=== PATIENT | female | born 1985 ===

== ENCOUNTER 2017-10-25 12:43 | Emergency (ER) | payer SELFPAY ==
[2017-10-25 12:50] VITALS: BP 131/76; PULSE 106; RESP 20; TEMP 97.7; O2SAT 98
--- NOTE | 2017-10-25 14:19 | C.PDOC ---
History Of Present Illness 31 year old female is brought into the emergency department by EMS for complaints of left ear pain for the past week. Patient denies a decrease in hearing, fever, chest pain, shortness of breath, or abdominal pain. Patient reports she is currently eight months . Chief Complaint (Nursing): ENT Problem History Per: Patient History/Exam Limitations: None Onset/Duration Of Symptoms: Days (1 week) Quality (Ear): Other (pain) Past Medical History Reviewed: Historical Data, Nursing Documentation, Vital Signs Vital Signs: Last Vital Signs Temp 97.7 F 10/25/17 12:47 Pulse 106 H 10/25/17 12:47 Resp 20 10/25/17 12:47 BP 131/76 10/25/17 12:47 Pulse Ox 98 10/25/17 14:24 - Medical History PMH: No Chronic Diseases Surgical History: No Surg Hx Family History: States: No Known Family Hx - Social History Hx Alcohol Use: No Hx Substance Use: No - Immunization History Hx Tetanus Toxoid Vaccination: No Hx Influenza Vaccination: No Hx Pneumococcal Vaccination: No Review Of Systems Except As Marked, All Systems Reviewed And Found Negative. Constitutional: Negative for: Fever ENT: Positive for: Ear Pain Cardiovascular: Negative for: Chest Pain Respiratory: Negative for: SOB with Excertion Gastrointestinal: Negative for: Abdominal Pain Neurological: Negative for: Other (decreased hearing) Physical Exam - Physical Exam Ear(s): Left: TM Erythema, Bilateral: Other (no mastoid tenderness ) Cardiovascular: Rhythm Regular Respiratory: Normal Breath Sounds Gastrointestinal/Abdominal: Normal Exam, Bowel Sounds (good), Soft, No Tenderness, Other (fundus at xiphoid process) ED Course And Treatment O2 Sat by Pulse Oximetry: 98 (RA) Pulse Ox Interpretation: Normal Disposition - Disposition Referrals: [facility] Amanda Aleman, [Non-Staff] - Disposition: HOME/ ROUTINE Disposition Time: 13:00 Condition: GOOD Additional Instructions: Thank you for letting us take care of you today. The emergency medical care you received today was directed at your acute symptoms. If you were prescribed any medication, please fill it and take as directed. It may take several days for your symptoms to resolve. Return to the Emergency Department if your symptoms worsen, do not improve, or if you have any other problems. Please contact your doctor or call one of the physicians/clinics you have been referred to that are listed on the Patient Visit Information form that is included in your discharge packet. Bring any paperwork you were given at discharge with you along with any medications you are taking to your follow up visit. Our treatment cannot replace ongoing medical care by a primary care provider (PCP) outside of the emergency department. Thank you for allowing the [facility] team to be part of your care today. Follow up with your primary care doctor in 2-3 days for re-evaluation and further management. Balta por dejarnos atenderlo hoy. La atencin mdica de emergencia que recibi hoy estaba dirigida a lauryn sntomas agudos. Si le prescribieron algn medicamento, llnelo y tome segn las indicaciones. Lauryn sntomas pueden tardar varios rider en resolverse. Regrese al Departamento de Emergencia si lauryn s ntomas empeoran, no mejoran o si tiene algn otro problema. Comunquese con tabares mdico o llame a jay de los mdicos / clnicas a los que gilbert sido referido que figura en el formulario de Informacin de visita del paciente que se incluye en tabares paquete de beckie. Traiga todos los documentos que recibi al momento del beckie junto con los medicamentos que est tomando en tabares visita de seguimiento. Nuestro tratamiento no puede reemplazar la atencin mdica en curso por parte de un proveedor de atencin primaria (PCP) fuera del departamento de emergencias. Balta por permitir que el equipo de [facility] sea parte de tabares cuidado hoy. Shan un seguimiento con tabares mdico de atencin primaria en 2-3 rider para claire nueva evaluacin y administracin adicional. Prescriptions: Amoxicillin [Amoxil 500 mg Cap] 500 mg PO Q8 #21 cap Forms: Gen Discharge Inst [place], [employer] ([place]) Print Language: SERBIAN - Clinical Impression Clinical Impression: Otitis media - Scribe Statement The provider has reviewed the documentation as recorded by the Scribe (Glen Naik) Provider Attestation: All medical record entries made by the Nitin were at my direction and personally dictated by me. I have reviewed the chart and agree that the record accurately reflects my personal performance of the history, physical exam, medical decision making, and the department course for this patient. I have also personally directed, reviewed, and agree with the discharge instructions and disposition.
== END 2017-10-25 13:38 | disposition home or self-care (01) ==
LOC: C.ER 12:43
DX: H66.92 Otitis media, unspecified, left ear (principal)

== ENCOUNTER 2017-12-25 06:20 | Inpatient (IN) | payer MEDICAID ==
[2017-12-25 06:32] VITALS: BMI 37.0
--- NOTE | 2017-12-25 10:32 | OBHP ---
Datetime: 12/25/2017 10:17 Admit Comment, IP Provider: 32 y/o at 38.6 wks presents to L_D for scheduled repeat c sectio n. Pt has no c/o CTX, VB, LOF. Pt perceives good movements. Upon review of record her KORIN by 17 wks US is 01/02/18 giving her a gestational age of 38.6 wks. Th ere is a discordance of 4 wks between the dates by LMp and US. No indication for early delivery was f ound on records or by eliciting the previous histroy with the pt. At this time dr Ovalles was reached by phone and discussed and decision was made to reschedule the pt on Thursday12/28/17 at 39.2 days given the BPP and US finding were normal. All these were discussed with the pt with the help of interpretation service and explained that it is safter to perform schedule c section after 39 wks as guidlines permits. Warning signs of pregnanc y including but not limited to Utrine bleeding and the importnace of good movements by the pt d iscussed to montitor the welbeing. Pt at first frustated because of the fact that is will be se dning home to come back for rpeat c section but understand and agrees to the plan. I also explained i n detail multiple times that she needs to return if she starts feeling CTX, VB or LOF to return. She was also instruted to return if she doens't have good movements. US shows a BPP of 8/8. NSt- Reactive. Pt was given [place] to come back on Thursday at (:30 am for another NST to reasure the safety of the he r baby. All the questions answered with the help of the computer systems technology instructor. Pelvic Type - PN: Not Done Extremities - PN: Normal Abdomen - PN: Normal Back - PN: Not Done Breast - PN: Not Done Lungs - PN: Not Done Heart - PN: Not Done Thyroid - PN: Not Done Neurologic - PN: Not Done HEENT - PN: Normal General - PN: Normal Presentation-Admit: Vertex FHR - Baseline A Provider: 130 Membranes, Provider: Intact Contraction Comments Provider: Occ Comments, ACOG Physical Exam: ABD: Soft, NT EXT: No calf tnederness , No edema noted. Gestation - Est Wks by US: 38.6 EGA AdmitDate IP: 38.6 Vital Signs Provider: Reviewed IP Chief Complaint: Scheduled Section NICHD Variability Prov Fetus A: Moderate 6-25bpm NICHD Accel Fetus A IP Provider: 15X15 FHR Category Provider Fetus A: Category I NICHD Decel Fetus A IP Provider: None Genitourinary Exam: Not Done DTRs - PN: Normal
--- NOTE | 2017-12-25 11:33 | US ---
PROCEDURE: Obstetrical ultrasound and biophysical profile HISTORY: BPP and Integrity of the lower segment COMPARISON: Not available TECHNIQUE: Transabdominal and transvaginal FINDINGS: The examination demonstrates a single live intrauterine gestation in cephalic presentation. The heart rate is 138 beats per minute. A grossly normal quantity of amniotic fluid is visualized. The DONNELL is 8.3 cm. This is within normal limits. The cervix is closed and measures 4.2 cm in length. There is no evidence of placenta previa. A normal posterior placenta is identified. Umbilical arterial Doppler evaluation demonstrates an S/D ratio of 2.4, within normal limits. A normal waveform is demonstrated. biometry demonstrates a gestational age of 39 weeks and 3 days. The KORIN by ultrasound is 12/29/2017. The EFW is 3850 g. Limited review of anatomy demonstratesa 4 chamber heart. Two normal kidneys are demonstrated without evidence of hydronephrosis. There is fluid distending the stomach and urinary bladder. No gross abnormality of the spine is demonstrated. The anterior abdominal wall is intact. A limited biophysical profile examination yields a score of 8 out of 8. IMPRESSION: Single live intrauterine gestation in cephalic presentation. Normal amniotic fluid volume. Biophysical profile score 8 out of 8. Cervix closed. No gross anatomic abnormality. Posterior placenta. No previa.
[2017-12-25 17:28] VITALS: BP 116/74; PULSE 90; RESP 18; TEMP 97; O2SAT 93
== END 2017-12-25 10:40 | disposition home or self-care (01) | DRG 886 ==
LOC: C.4D 06:20
PROVIDERS: ADMIT Obstetrics & Gynecology; ATTEND Obstetrics & Gynecology
DX: O34.219 Maternal care for unspecified type scar from previous cesarean delivery (principal); Z3A.38 38 weeks gestation of pregnancy

== ENCOUNTER 2017-12-27 09:16 | Emergency (ER) | payer MEDICAID ==
--- NOTE | 2017-12-27 10:58 | OBHP ---
Datetime: 12/27/2017 10:40 Admit Comment, IP Provider: 32 y/o at 39.1 wks presents to L_D for NST. KORIN by 17 wks US i s 01/02/18. She reports good fm, denies ctxs,srom, or vag bleeding. states ob hx has been unremarkable. obhx: cdx1; complete abx2 pmhx: asthma last attack 3yrs ago; not taking meds pshx: cd nkda medic:pnv shx: denies etoh, illicit drugs or tobacco i: 39.1wks h/o prior cd p: kick counts. labor precautions npo after 12am. return tomorrw at 6am for repeat cd Datetime: 12/25/2017 10:17 IP Adm Impression: Term, intrauterine IP Admit Plan: Discharge home EGA AdmitDate IP: 38.6
[2017-12-27 15:26] VITALS: BP 139/82; PULSE 76
== END 2017-12-27 10:40 | disposition home or self-care (01) ==
LOC: C.EROB 09:16
DX: Z36.89 Encounter for other specified antenatal screening (principal); Z3A.39 39 weeks gestation of pregnancy

== ENCOUNTER 2017-12-28 06:20 | Inpatient (IN) | payer MEDICAID ==
[2017-12-28] MEDS ORDERED: Sodium Citrate/Citric Acid 15 ml Sol PO ONE (07:05)
[2017-12-28] MEDS ORDERED: Sodium Citrate/Citric Acid 15 ml Sol ONE (07:28)
[2017-12-28] MEDS ORDERED: Oxytocin 20 units in LR 2,000 ML IV ONE (07:28)
--- NOTE | 2017-12-28 07:28 | OBHP ---
Datetime: 12/28/2017 07:25 IP Adm Impression: Term, intrauterine IP Admit Plan: Admit to unit; Initiate Section protocol Admit Comment, IP Provider: 32 y/o at 39.1 wks presents to L_D rpeat CD. KORIN by 17 wks US is 01/02/18. She reports good fm, denies ctxs,srom, or vag bleeding. states ob hx has been unremarkable. obhx: cdx1; complete abx2 pmhx: asthma last attack 3yrs ago; not taking meds pshx: cd nkda medic:pnv shx: denies etoh, illicit drugs or tobacco i: 39.1wks h/o prior cd p: repeat cd Pelvic Type - PN: Not Done Extremities - PN: Normal Abdomen - PN: Normal Lungs - PN: Normal Heart - PN: Normal Thyroid - PN: Normal Neurologic - PN: Normal HEENT - PN: Normal General - PN: Normal EGA AdmitDate IP: 39.2 IP Chief Complaint: Scheduled Section
[2017-12-28] MEDS ORDERED: cefOXitin IV 2 gm in Saline 0 GM/0 ML BAG IVPB ONE (07:31)
--- NOTE | 2017-12-28 07:32 | OBADHP ---
Datetime: 12/28/2017 07:25 Admit Comment, IP Provider: 32 y/[facility] at 39.1 wks [facility] 17 wks US is 01/02/18. She reports good fm, denies ctxs,srom, or vag bleeding. states ob hx has been unremarkable. obhx: cdx1; complete abx2 pmhx: asthma last attack 3yrs ago; not taking meds pshx: cd nkda medic:pnv shx: denies etoh, illicit drugs or tobacco i: 39.1wks h/o prior cd p: repeat cd Pelvic Type - PN: Not Done Extremities - PN: Normal Abdomen - PN: Normal Lungs - PN: Normal Heart - PN: Normal Thyroid - PN: Normal Neurologic - PN: Normal HEENT - PN: Normal General - PN: Normal FHR - Baseline A Provider: 150 IP Chief Complaint: Scheduled Section NICHD Variability Prov Fetus A: Moderate 6-25bpm NICHD Accel Fetus A IP Provider: 10X10 FHR Category Provider Fetus A: Category I NICHD Decel Fetus A IP Provider: None Genitourinary Exam: Normal EGA AdmitDate IP: 39.2 IP Adm Impression: Term, intrauterine IP Admit Plan: Admit to unit; Initiate Section protocol Datetime: 12/25/2017 10:17 Back - PN: Not Done Breast - PN: Not Done Presentation-Admit: Vertex Membranes, Provider: Intact Contraction Comments Provider: Occ Comments, ACOG Physical Exam: ABD: Soft, NT EXT: No calf tnederness , No edema noted. Gestation - Est Wks by US: 38.6 Vital Signs Provider: Reviewed DTRs - PN: Normal
[2017-12-28 07:54] LABS: BLOOD UREA NITROGEN 12 mg/dL (7-17); CALCIUM 9.2 mg/dl (8.6-10.4); GFR AFRICAN-AMERICAN > 60; GFR NON-AFRICAN AMERICAN > 60
[2017-12-28] MEDS ORDERED: Morphine 1 mg/ml preservative-free Inj(Duramorph) ONE (07:56)
[2017-12-28] MEDS ORDERED: ceFAZolin 2 GM in Sodium Chloride 0.9% 100 ML IVPB ONE (08:00)
[2017-12-28 08:11] LABS: SQUAMOUS EPITHIAL 2 /hpf (0-5); URINE BACTERIA RARE (<OCC); URINE BILIRUBIN NEGATIVE (NEGATIVE); URINE BLOOD NEGATIVE (NEGATIVE); URINE CLARITY Clear (Clear); URINE COLOR Red (YELLOW); URINE GLUCOSE (UA) NORMAL (Normal); URINE LEUKOCYTE ESTERASE NEG Leu/uL (Negative); URINE PROTEIN NEGATIVE (NEGATIVE); URINE UROBILINOGEN NORMAL mg/dL (0.2-1.0)
[2017-12-28] MEDS: Lactated Ringer's 1,000 ML IV SCH (08:17)
[2017-12-28] MEDS ORDERED: ceFAZolin IV 2 gm in Dextrose 2 GM/50 ML BAG IVPB ONE (08:18)
[2017-12-28 08:21] LABS: BASO % 0.2 % (0.0-2.0); EOS # 0.1 K/uL (0.0-0.7); EOS % 1.1 % (0.0-4.0); HEMOGLOBIN 11.7 g/dL (11.0-16.0); LYMPH # 1.1 K/uL (1.0-4.3); MEAN CELL VOLUME 85.6 fL (81.0-99.0); MEAN CORPUSCULAR HEMOGLOBIN 29.5 pg (27.0-31.0); MEAN CORPUSCULAR HGB CONC 34.5 g/dL (33.0-37.0); MEAN PLATELET VOLUME 9.6 fL (7.2-11.7); MONO # 0.4 K/uL (0.0-0.8); MONO % 5.7 % (0.0-10.0); NEUT # 5.1 K/uL (1.8-7.0); RBC 3.97 Mil/uL (3.80-5.20); WHITE BLOOD COUNT 6.7 K/uL (4.8-10.8)
[2017-12-28] MEDS ORDERED: ePHEDrine 50 mg/ml Inj ONE (08:48)
[2017-12-28] MEDS ORDERED: Oxytocin 10 Units/ml Inj ONE (09:25)
[2017-12-28] MEDS ORDERED: Tdap Vaccine 0.5 ml Vial (10-64 yrs) IM ONE (10:15)
[2017-12-28] MEDS ORDERED: Oxytocin 10 Units/ml Inj IM ONE (10:15)
[2017-12-28] MEDS ORDERED: DiphenhydrAMINE 50 mg/ml Inj IVP PRN (10:30)
[2017-12-28] MEDS ORDERED: HYDROmorphone 0.5 mg/0.5 ml ISec IVP PRN (10:30)
--- NOTE | 2017-12-28 12:16 | OP ---
PROCEDURE DATE: 12/28/2017 PREOPERATIVE DIAGNOSES: 1. Intrauterine gestation at 39 weeks. 2. Repeat section. 3. Prior history of a section x1 in [place]. POSTOPERATIVE DIAGNOSES: 1. Intrauterine gestation at 39 weeks. 2. Repeat section. 3. Prior history of a section x1 in [place]. PROCEDURE: Repeat section. SURGEON: Yakelin Franklin M.D. LACQUER COATER: Dave Pantoja MD TYPE OF ANESTHESIA: Spinal. COMPLICATIONS: None. ESTIMATED BLOOD LOSS: 800 mL. DRAINS: Rodriguez catheter to the bladder. SPECIMENS TO PATHOLOGY: None. OPERATIVE FINDINGS: A viable male infant with scores 9 at one minute and 9 at five minutes with a weight of 10 pounds. The was delivered in an occiput anterior position. DESCRIPTION OF PROCEDURE: The patient was taken to the operating room and prepped and draped in the usual manner for a section. A Pfannenstiel incision was made in the lower abdomen with a scalpel. The preperitoneal fat was taken down with the assistance of a Bovie, and the fascia was extended bilaterally with the assistance of a Bovie. Two Kochers were placed on the anterior aspect of the fascia, and the rectus muscle was dissected off the fascia. The same procedure was performed on the posterior fascia. The rectus muscles were then grasped with two Allis clamps, and the peritoneum was entered with the assistance of a scalpel, and surgeon's hand entered into the peritoneal cavity and stretched bilaterally. There were no adhesions noted. Bladder blade was then placed on the bladder, and bladder flap was created with the assistance of Metzenbaum scissors. The scalpel was then used to create an incision in the lower uterine segment until the amniotic fluid was reached. Uterine incision was stretched and extended bilaterally with surgeon's fingers. The amniotic sac was ruptured with Allis clamps. Fluid was noted to be clear. head was identified all the way down to the abdomen and delivered with the assistance of fundal pressure. The cord was cut, clamped. The infant was bulb suctioned, and the infant handed to the pediatricians for further care. The placenta was then removed manually. Lap sponge was then used to clean the uterine contents. The uterus was exteriorized. The uterine incision was then closed with the assistance of 0 Vicryl in two layers until hemostasis was achieved. The posterior fundus was irrigated with warm saline. All blood clots were removed. The uterus was then reinstated back into the uterine cavity. The left and right ovary and fallopian tubes were noted to be normal. Surgicel was then placed on the uterine incision. Interceed was then placed above. The peritoneum was then closed with 2-0 Vicryl. The muscle was reapproximated with 2-0 Vicryl. The fascia was reapproximated with 0 Vicryl. The preperitoneal fat was reapproximated with plain gut. The skin was reapproximated with loretta. All sponge, needle, and instrument counts were noted to be correct at the end of the procedure. Yakelin Franklin MD
[2017-12-28] MEDS: Simethicone 80 mg Chewtab PO SCH ×3 (13:19→22:26)
[2017-12-28 16:49] LABS: BASO % 0.2 % (0.0-2.0); EOS % 0.2 % (0.0-4.0); HEMOGLOBIN 11.9 g/dL (11.0-16.0); LYMPH # 1.2 K/uL (1.0-4.3); LYMPH % 8.7 % (20.0-40.0); MEAN CELL VOLUME 86.2 fL (81.0-99.0); MEAN CORPUSCULAR HEMOGLOBIN 28.9 pg (27.0-31.0); MEAN CORPUSCULAR HGB CONC 33.5 g/dL (33.0-37.0); MEAN PLATELET VOLUME 8.8 fL (7.2-11.7); MONO # 0.6 K/uL (0.0-0.8); MONO % 4.5 % (0.0-10.0); NEUT # 11.5 K/uL (1.8-7.0); NEUT % 86.4 % (50.0-75.0); PLATELET COUNT 154 K/uL (130-400); RBC 4.14 Mil/uL (3.80-5.20); RED CELL DISTRIBUTION WIDTH 15.1 % (11.5-14.5)
[2017-12-28 16:51] LABS: WHITE BLOOD COUNT 13.3 K/uL (4.8-10.8)
[2017-12-28 17:17] LABS: BANDS 8 % (0-2); LYMPHOCYTE 5 % (20-40); MONOCYTE 2 % (0-10); NEUTROPHIL 85 % (50-75); PLATELET ESTIMATE NORMAL (NORMAL); TOTAL CELLS COUNTED 100
[2017-12-28 17:18] LABS: ANISOCYTOSIS SLIGHT
[2017-12-29] MEDS: Lactated Ringer's 1,000 ML IV SCH (05:52)
[2017-12-29 07:45] LABS: BASO % 0.2 % (0.0-2.0); EOS # 0.1 K/uL (0.0-0.7); EOS % 0.4 % (0.0-4.0); HEMOGLOBIN 12.3 g/dL (11.0-16.0); LYMPH # 0.7 K/uL (1.0-4.3); LYMPH % 5.5 % (20.0-40.0); MEAN CELL VOLUME 86.9 fL (81.0-99.0); MEAN CORPUSCULAR HEMOGLOBIN 29.3 pg (27.0-31.0); MEAN CORPUSCULAR HGB CONC 33.7 g/dL (33.0-37.0); MEAN PLATELET VOLUME 8.9 fL (7.2-11.7); MONO # 0.6 K/uL (0.0-0.8); MONO % 5.2 % (0.0-10.0); NEUT % 88.7 % (50.0-75.0); PLATELET COUNT 188 K/uL (130-400); RBC 4.22 Mil/uL (3.80-5.20); RED CELL DISTRIBUTION WIDTH 15.2 % (11.5-14.5); WHITE BLOOD COUNT 12.4 K/uL (4.8-10.8)
[2017-12-29 08:44] LABS: BANDS 1 % (0-2); EOSINOPHIL 2 % (0-4); LYMPHOCYTE 7 % (20-40); MONOCYTE 4 % (0-10); NEUTROPHIL 86 % (50-75); PLATELET ESTIMATE NORMAL (NORMAL); TOTAL CELLS COUNTED 100
[2017-12-29 08:45] LABS: HYPOCHROMIC SLIGHT
[2017-12-29] MEDS: Prenatal Multivit/Folic Acid/Iron Tab PO SCH (09:13)
[2017-12-29] MEDS: Oxycodone/Acetaminophen 5/325 mg Tab PO PRN ×2 (09:13→16:41)
[2017-12-29] MEDS: Simethicone 80 mg Chewtab PO SCH ×4 (09:13→22:08)
--- NOTE | 2017-12-29 21:06 | OBPPN ---
Datetime: 12/29/2017 21:02 PP Nausea Prov: Denies PP Flatus Prov: Yes PP BM Prov: No PP Breasts Prov: Normal PP Heart Prov: Normal PP Lungs Prov: Normal PP Abdomen/Uterus Prov: Normal PP Lochia Prov: Normal PP Vulva/Perineum Prov: Normal PP Impression Prov: Endometritis PP Plan Prov: Continue present management PP Progress Note Prov: PT doing well. Currently no complaints. Tolerating PO diet, ambulating. Passi ng flatus Fundus: firm above umbilicus abdomen: Incision C/D/I. PE: no signs of edema. S/P REPEAT C/S POD #1 VSS: afebrile. Circumcision done today. encourage ambulation. Routine Postop care. IP PP Procedures: None Vital Signs Provider PP: Reviewed
[2017-12-30] MEDS: Simethicone 80 mg Chewtab PO SCH ×4 (09:48→22:02)
[2017-12-30] MEDS: Prenatal Multivit/Folic Acid/Iron Tab PO SCH (09:48)
--- NOTE | 2017-12-30 11:03 | OBPPN ---
Datetime: 12/30/2017 10:59 PP Pain Prov: Within normal limits PP Nausea Prov: Denies PP Flatus Prov: Yes PP Abdomen/Uterus Prov: Normal PP Lochia Prov: Normal PP Extremities Prov: Normal PP Comments Phys Exam Prov: fudis below umblicus ext no edema,no calf ten incision clean and dry PP Impression Prov: Normal progression PP Plan Prov: Continue present management PP Progress Note Prov: pt was seen at bed side, painm under control,no n/v, tolerating deit, voiding , min lochia pod#2 s/p c/s cont pain manag cont post op care encourage abulation Vital Signs Provider PP: Within Normal Limits
[2017-12-30] MEDS: Oxycodone/Acetaminophen 5/325 mg Tab PO PRN ×2 (15:11→19:52)
[2017-12-31] MEDS: Oxycodone/Acetaminophen 5/325 mg Tab PO PRN ×2 (02:23→08:34)
[2017-12-31] MEDS ORDERED: Oxycodone/Acetaminophen 5/325 mg Tab PO PRN (07:38)
[2017-12-31 08:17] VITALS: RESP 18
--- NOTE | 2017-12-31 08:24 | OBDCSUM ---
Datetime: 12/31/2017 08:19 Follow up at, Provider: 1 week Disch Instr Activity: Normal activity; May be up to bathroom; May Shower Disch Instr Diet: Regular Discharge Instructions, Provider: Routine instructions given Discharge Diagnosis, Provider: Term Delivered Discharge Time: 12/31/2017 08:19 Contraception discussed, Prov: No Disch Activity Restrictions: No exercising; No lifting; No driving; Minimize stair-climbing; No sexu al activity Discharge Comment, Provider: S/P RCS. POD#3 Doing well. No complaints. Tolerating PO diet, ambulating, passing flatus. . abdomen: fundus firm above umbilicus. Ext: no edema A/P: s/p RCS POD #3 1) VSS: afebrile. 2) s/p circumcision. 3) Discharge home. Signature: shashi agarwal
[2017-12-31] MEDS ORDERED: Measles, Mumps, and Rubella 0.5 ML VIAL SC ONE (09:03)
[2017-12-31] MEDS: Prenatal Multivit/Folic Acid/Iron Tab PO SCH (10:15)
[2017-12-31] MEDS: Simethicone 80 mg Chewtab PO SCH (10:15)
[2017-12-31 15:05] VITALS: BP 113/77; PULSE 77; TEMP 97.5; O2SAT 97
== END 2017-12-31 11:00 | disposition home or self-care (01) | DRG 371 ==
LOC: C.EROB 06:20 → C.4D 06:50 → C.4M 12:35
PROVIDERS: ADMIT Obstetrics & Gynecology; ATTEND Obstetrics & Gynecology
PROC: 10D00Z1 Extraction of Products of Conception, Low, Open Approach (ICD-10-PCS; principal; 2017-12-28)
DX: O34.211 Maternal care for low transverse scar from previous cesarean delivery (principal); Z3A.39 39 weeks gestation of pregnancy; Z37.0 Single live birth

== ENCOUNTER 2018-10-12 13:42 | Outpatient (CLI) | payer SELFPAY | END 2018-10-12 13:43 | disposition home or self-care (01) | LOC: C.RADH 13:42 | DX: M06.9 Rheumatoid arthritis, unspecified (principal); E03.9 Hypothyroidism, unspecified; I10 Essential (primary) hypertension; E78.00 Pure hypercholesterolemia, unspecified ==